=== PATIENT | male | born 1940 | race Hispanic/Latino ===

== ENCOUNTER 2023-01-21 12:41 | Day surgery (SDC) | payer MEDICARE, OTHER, SELFPAY ==
[2023-01-12 12:29] VITALS: BMI 27.8
[2023-01-21] VITALS (12 sets, daily range): BP systolic 102–154; BP diastolic 58–81; PULSE 60–69; RESP 8–18; TEMP 35.9–36.7; O2SAT 94–100; BMI 27.4
--- NOTE | 2023-01-21 06:00 | DI.RAD.S_ITS ---
PROCEDURE: XR KNEE LT 1TO2V INDICATIONS: prosthesis placement TECHNIQUE: 2 view(s) of the knee acquired. COMPARISON: None. FINDINGS: Bones: Patient is status post knee joint arthroplasty. Hardware components are in expected positions. Visualized bony structures are intact. Soft tissues: Overlying postoperative changes are noted. IMPRESSION: Postop changes from left total knee arthroplasty with anatomic left knee alignment. Dictated by: Anup Gabriel M.D. on 01/22/2023 at 10:37 Approved by: Anup Gabriel M.D. on 01/22/2023 at 10:37
[2023-01-21 13:39] LABS: COVID19 -Nasal RAPID Negative (Negative)
[2023-01-21] MEDS: PREGABALIN 75 MG CAPSULE PO (14:12)
[2023-01-21] MEDS: CELECOXIB 200 MG CAPSULE PO (14:12)
[2023-01-21] MEDS: ACETAMINOPHEN 325 MG TABLET 975 MG PO (14:12)
--- NOTE | 2023-01-21 14:39 | PM.PREOP ---
Pre-operative Note COVID-19 COVID-19 status: Negative Result date/Date tested (Pos, Neg/Pending): 01/21/23 Interval Note History & Physical reviewed/Exam performed by Physician: Yes Changes to H&P: No
[2023-01-21] MEDS: CEFAZOLIN 2 GM/100 ML PREMIX 100 ML IV ×2 (15:20→22:49)
[2023-01-21] MEDS: TRANEXAMIC ACID 1,000 MG VIAL 1000 MG INJ ×2 (15:25→16:32)
[2023-01-21] MEDS: MORPHINE 4 MG/ML INJ INJ (15:30)
[2023-01-21] MEDS: BUPIVACAINE LIPOSOME 266 MG/20 ML VIAL INJ (15:30)
[2023-01-21] MEDS: BUPIVACAINE 0.25% (PF) 60 ML, EPINEPHrine 0.3 MG INJ (15:30)
--- NOTE | 2023-01-21 15:31 | SUR.OPER ---
Supine on padded OR bed. Pillow under head, arms secured on padded armboards <90 degree abduction. Safety belt across torso. Non-operative leg secured with tape over blanket over lower leg. Operative leg secured in [employer] positioner. Foam padded brace at thigh of operative leg.
--- NOTE | 2023-01-21 16:35 | PM.OP.1 ---
Operative Date/Time/Diagnoses Date of procedure: 01/21/23 Time of procedure: 16:35 Pre-op diagnosis: Left knee osteoarthritis Post-op diagnosis: same Procedure & Clinicians Procedure: Left total knee replacement Same procedure as scheduled: Yes Indications: The patient has had progressively worsening left knee pain with radiographic changes consistent with arthritis. Non-operative management has failed and the patient has requested total knee replacement. The risks, benefits and alternatives to surgery were discussed with the patient prior to proceeding. Risks discussed included, but were not limited to, failure to relieve pain, stiffness, infection, nerve damage, deep venous thrombosis, pulmonary embolism, stroke, coma, heart attack, permanent paralysis and , as well as the potential need for eventual revision of the prosthetic. Surgeon: Agapito Parada Procurement Buyer: Margareth Turner Click Yes if Unassisted: No Anesthesia Type: General, Spinal and Local Operative Notes Findings: Severe tricompartmental osteoarthritis, worst in the medial compartment. Closure Type: primary Specimen(s): none sent Prosthetic devices, grafts, tissues, transplants, or devices: Implants used in this procedure were manufactured by the [employer] and [employer] and included the BCS II Journey total knee replacement with a size 5 left cobalt chromium femoral component, a size 5 left non porous tibial base plate, a 10 mm cross-linked tibial insert and a 32 mm oval Gisela II patella. Applied: implant(s) Estimated Blood Loss (mL): 25 Blood products transfused: none Tourniquet time (min): 47 Procedure in detail: The patient was seen in the pre-operative area, where the left knee was identified as the operative site and this was marked with my initials. The patient received pre-operative antibiotics, and was taken to the operating room and placed on the operative table in the supine position. After satisfactory anesthesia, a manual training teacher out was performed. The left leg was encircled with a tourniquet about the proximal thigh, and the leg was prepared from the toes to the tourniquet with ChloroPrep in the usual fashion and draped through sterile drapes. The leg was elevated and exsanguinated with Eschmark bandage and the tourniquet inflated to 250 mmHg pressure. The knee was approached through an approximately 18 cm incision centered over the patella and carried into the knee through a medial parapatellar arthrotomy. The anterior osteophytes and soft tissues were removed. The rotational landmarks of [place]'s line and the transepicondylar axis were marked on the femur with electrocautery, and intramedullary guide holes for the femur and tibia were created. The distal femoral cut was made in 6 degrees of valgus using the intramedullary guide at the primary cut setting. The proximal tibial cut was then made using the intramedullary guide, taking 9 mm of bone off the less involved side. The extension gap was checked and the rotation of the femoral component confirmed with the gap balancing blocks. The anterior, posterior and chamfer cuts were then made. The posterior osteophytes and soft tissues were then removed. The posterior capsule was injected with part of a mixture of 60 ml 0.25% Marcaine mixed with 20 ml Exparel and 4 mg of morphine for post-operative pain control. The remainder of this mixture was injected into the capsule and subcutaneous tissues during cement curing. The tibia was prepared with the rotation set by an extra medullary guide. Trial tibial and femoral components were then placed and the intercondylar notch cut through the femoral trial. Range of motion was 0-140 degrees, with good stability throughout the range. The patella was then cut to accommodate the patellar prosthetic. There was no need for a lateral release. The trials were then removed, and the femoral hole plugged with a bone plug. The bone was prepared with pulsatile lavage, and dried with a sponge. Cement was applied and the final prosthetics placed. Excess cement was removed during and after cement curing. After confirming there was no extruded cement posteriorly, the final tibial insert was placed. The knee was copiously irrigated and the tourniquet deflated. Hemostasis was obtained. The capsule was closed with interrupted # 2 polyester sutures. The subcutaneous layer was closed with 3-0 Vicryl, and the skin with a running 3-0 V-Lock suture and Dermabond. An Aquacel Ag dressing was applied and the patient was taken to recovery having tolerated the procedure well. The services of a skilled video production assistant were required during this procedure to provide positioning, exposure and retraction to protect vital structures. Without the services of Ms. Turner, the case could not have proceeded in a safe, expedient fashion. Complications: none Post-operative Condition: stable Disposition: PACU Plan for aftercare: The patient will be maintained on a standard total knee replacement protocol with weight bearing as tolerated. The patient will receive aspirin and sequential compression devices for DVT prophylaxis. The patient will be discharged home when safe for the home environment.
[2023-01-21] MEDS: ONDANSETRON 4 MG/2 ML INJ IV (17:39)
[2023-01-21] MEDS: ACETAMINOPHEN 325 MG TABLET 650 MG PO ×2 (17:40→22:53)
[2023-01-21] MEDS: IBUPROFEN 600 MG TABLET PO ×2 (17:40→22:53)
[2023-01-21] MEDS: LACTATED RINGERS 1,000 ML 100 ML IV (17:46)
[2023-01-21] MEDS: ATORVASTATIN 20 MG TABLET 40 MG PO (21:06)
[2023-01-21] MEDS: DOCUSATE 100 MG CAPSULE PO (21:06)
[2023-01-21] MEDS: ASPIRIN EC 81 MG TABLET PO (21:06)
[2023-01-22 00:25] VITALS: BP 122/65; PULSE 67; RESP 16; TEMP 36.3; O2SAT 96
--- NOTE | 2023-01-22 03:27 | PC.NURSE ---
Tried to void x2 but was unable to urinate. I&O cath. done without any difficulty noted 550 of dark yellow urine. Will cont. POC & monitor.
[2023-01-22 04:36] VITALS: BP 129/68; PULSE 64; RESP 17; TEMP 36.6; O2SAT 98
[2023-01-22] MEDS: LACTATED RINGERS 1,000 ML 100 ML IV (04:42)
[2023-01-22 05:45] LABS: Hematocrit 37.7 % (41-53); Hemoglobin 12.7 g/dL (13.5-17.5)
[2023-01-22] MEDS: CEFAZOLIN 2 GM/100 ML PREMIX 100 ML IV (06:40)
[2023-01-22 07:49] VITALS: BP 138/66; PULSE 61; RESP 18; TEMP 36.5; O2SAT 97
--- NOTE | 2023-01-22 07:59 | PM.DS.1 ---
History of Present Illness History of Present Illness Date Patient Seen: 01/22/23 Time Patient Seen: 07:59 Chief complaint: Left TKA *OPB* 01/07 Narrative: Patient is complaining of mild left knee pain. His main concern is that he has hiccups. Overall he is feeling well like to be discharged home today. Discharge Providers Provider Discharge Date: 01/22/23 Primary care physician: Margo Hunt MD Consults: 01/21/23 17:22 Consult to Discharge Planning Routine Comment: Consult to Physical Therapy Evaluate & Treat Comment: Physician Instructions: postop TKA protocol Discharge provider: Margareth Turner PA-C Summary Hospital Course Discharge Diagnosis: Left knee osteoarthritis Hospital Course: Operative Date/Time/Diagnoses Date of procedure: 01/21/23 Time of procedure: 16:35 Procedure & Clinicians Procedure: Left total knee replacement Same procedure as scheduled: Yes Indications: The patient has had progressively worsening left knee pain with radiographic changes consistent with arthritis. Non-operative management has failed and the patient has requested total knee replacement. The risks, benefits and alternatives to surgery were discussed with the patient prior to proceeding. Risks discussed included, but were not limited to, failure to relieve pain, stiffness, infection, nerve damage, deep venous thrombosis, pulmonary embolism, stroke, coma, heart attack, permanent paralysis and , as well as the potential need for eventual revision of the prosthetic. Surgeon: Agapito Parada Sales Negotiator: Margareth Turner Click Yes if Unassisted: No Anesthesia Type: General, Spinal and Local Operative Notes Findings: Severe tricompartmental osteoarthritis, worst in the medial compartment. Closure Type: primary Specimen(s): none sent Prosthetic devices, grafts, tissues, transplants, or devices: Implants used in this procedure were manufactured by the [employer] and [employer] and included the BCS II Journey total knee replacement with a size 5 left cobalt chromium femoral component, a size 5 left non porous tibial base plate, a 10 mm cross-linked tibial insert and a 32 mm oval Gisela II patella. Applied: implant(s) Estimated Blood Loss (mL): 25 Blood products transfused: none Tourniquet time (min): 47 Status at Discharge Cognitive/behavioral status at discharge: at baseline, oriented Functional status at discharge: uses cane/walker Overall status at discharge: patient is progressing back to baseline Exam Vital Signs (past 8 hours): - 01/22/23 00:25 01/22/23 04:36 01/22/23 07:49 Temperature 97.4 F L 97.9 F 97.7 F Pulse Rate 67 64 61 Respiratory Rate 16 17 18 Blood Pressure 122/65 129/68 138/66 Pulse Oximetry 96 98 97 Oxygen Flow Rate 0 0 0 Oxygen Delivery Method Room Air Oxygen Flow Rate 0 Narrative Exam Narrative: Pleasant 82-year-old male, resting comfortably in bed, no acute distress. He is actively hiccuping. Left knee dressing is clean, dry, intact. No surrounding erythema, induration, or jerel pus. Bilateral lower extremity: Motor functions are grossly intact, sensation is grossly intact to light touch, calves are soft and nontender to palpation. Objective Labs 01/22/23 04:49 Labs: Laboratory Results - last 24 hr 01/21/23 01/22/23 13:07 04:49 Hgb 12.7 L Hct 37.7 L SARS-CoV-2 (PCR) Negative [facility] Medical History CAD (coronary artery disease) Gout HLD (hyperlipidemia) Raynaud's syndrome RBBB (right bundle branch block with left anterior fascicular block) Surgical History History of left cataract surgery Hx of arthroscopy of right knee Hx of heart artery stent (~2003) S/P placement of cardiac pacemaker Social History household members: children Smoking Status: Never smoker alcohol intake: current Discharge Assessment & Plan Assessment and Plan Assessment: -stable status post left total knee arthroplasty Plan of Treatment: -mobilize with PT. Weightbearing as tolerated with front wheel walker cane -continue with multimodal pain management -add baclofen 5-10 mg as needed for hiccups -aspirin 81 mg b.i.d. times 6 weeks for DVT prophylaxis -DC home today once cleared by PT Discharge Plan Discharge Plan Patient Disposition: Home Discharge orders & Medications Discharge Orders: Discharge (Order); Ordered 01/22/23 Ordered By: Margareth Turner Prescriptions: New baclofen 10 mg Tablet 10 mg PO TID PRN (Reason: hiccups/muscle spasms) Qty: 30 0RF docusate sodium 100 mg Capsule 100 mg PO BID PRN (Reason: constipation) Qty: 20 0RF oxycodone 5 mg Tablet 5 mg PO Q3H PRN (Reason: Pain, Moderate (4-6)) Qty: 40 0RF acetaminophen 325 mg Tablet 650 mg PO Q6H MDD Max 3000 mg per day PRN (Reason: fever or pain) Qty: 90 0RF aspirin 81 mg Tablet,Delayed Release (Dr/Ec) 81 mg PO BID 42 Days Qty: 84 0RF Rx Instructions: Prevent blood clots ibuprofen 600 mg Tablet 600 mg PO Q6H MDD Max 2400 mg per day PRN (Reason: Pain/inflammation) Qty: 90 0RF Continued simvastatin 80 mg Tablet 80 mg PO BEDTIME Discontinued aspirin [Aspir-81] 81 mg Tablet,Delayed Release (Dr/Ec) 81 mg PO DAILY Follow up/Referrals: Margo Hunt MD [Primary Care Provider] - Agapito Parada MD [Physician] - As previously scheduled (10-14 days for postoperative visit) Diet/Activity/Treatments Diet: Diet as Tolerated Other treatments: Dressing/Wound care: -Remove the Kiet wrap 48 hours after surgery. -Keep Aquacell dressing in place until postoperative follow-up office visit. -Okay to shower. Keep wound out of direct water stream. No soaking or submerging until all the scabs fall off (approximately 4-6 weeks). -No lotions, ointments, or scar creams directly to the incision until the wound is healed (4-6 weeks). No soaking or submerging until all the scabs are gone (usually 4-6 weeks). -Bruising is relatively normal and can show up 1-10 days after surgery, and can travel down to your foot or ankle. This is expected after surgery, but can be painful. -Please call the office if dressing becomes wet, soiled, or saturated. Activities: -Walk frequently: approximately 5-10 minutes every hour. -Weight-bearing as tolerated. Use front wheeled walker, and progress to cane when safe. -Continue with home exercises as directed by your physical therapist. -Elevate ?toes above the nose if you have significant swelling in your lower leg. (A wedge pillow is easiest.) -Ice your incision as needed for pain/inflammation/swelling. Protect your skin with a folded pillowcase. -Incentive Spirometer (breathing device from hospital): 5-10xs every hour while awake for the first 1-2 weeks. Follow-up: -Follow-up with your surgeon or PA in the office in 10-14 days after surgery. -Follow-up with your surgeon 6 weeks postoperatively. Call the office if you have chest pain, shortness of breath, significant swelling that will not resolve with elevating, fever over 101?, significantly worsening pain, or are concerned you might need to go to the Emergency Room. [facility]: [phone] Skin/Wound/Dressing Care Report to your healthcare provider any signs of infection, such as:: chills, fever, night sweats, unusual drainage and unusual redness Visit Report/Discharge Packet Instructions: DI for Knee Replacement Stand Alone Forms: Patient Portal/API, Surgery Discharge Discharge Data Primary Care Provider: Margo Hunt Attending Provider: Agapito Parada Quality VTE Deep Vein Thrombosis/Pulmonary Embolism Present on Admission: No
[2023-01-22] MEDS: DOCUSATE 100 MG CAPSULE PO (09:16)
[2023-01-22] MEDS: ASPIRIN EC 81 MG TABLET PO (09:16)
--- NOTE | 2023-01-22 11:19 | PC.NURSE ---
1119 Called and left for Margaerth Turner PA-C that patient had to be straight cathed last night for 550ml and has not voided appropriately yet. Patient was bladder scanned with 275mL of urine retained in bladder. Awaiting call back.
[2023-01-22] MEDS: ACETAMINOPHEN 325 MG TABLET 650 MG PO (11:39)
[2023-01-22] MEDS: IBUPROFEN 600 MG TABLET PO (11:40)
== END 2023-01-22 03:05 | disposition home or self-care (01) ==
LOC: OR 12:43 → AC 16:57
PROVIDERS: PCP Family Medicine; Referring Provider Orthopaedic Surgery; Visit Provider Orthopaedic Surgery
PROC: 0SRD0JZ Replacement of Left Knee Joint with Synthetic Substitute, Open Approach (ICD-10-PCS; CPT 27447; principal; 2023-01-21 14:15)
DX: M17.12 Unilateral primary osteoarthritis, left knee (principal); Z20.822 Contact with and (suspected) exposure to COVID-19
CPT/HCPCS: 27447; 36415; 73560; 82962; 85014; 85018; 87635; 97161; C1776; C9803; C9290; J0171; J0690; J2250; J2270; J2274; J2405; J2704; J3010

== ENCOUNTER 2023-01-27 22:39 | Emergency (ER) | payer MEDICARE, OTHER, SELFPAY ==
[2023-01-21 17:28] VITALS: BMI 27.4
--- NOTE | 2023-01-27 23:14 | ED_ITS ---
HPI - General Adult General Chief complaint: Abdominal Pain Stated complaint: constipation s/p surgery Time Seen by Provider: 01/27/23 23:12 History of Present Illness HPI narrative: 82-year-old gentleman with a history of hyperlipidemia and osteoarthritis who underwent left knee replacement on January 21. The knee surgery recovery is going well. He states use oxycodone only the 1st day. He is taken 2 tablets of a stool softener that was prescribed. Notes that he has not had a bowel movement in the last 5 days and is becoming more and more uncomfortable. He is having some loose stool leakage. No fevers, he is passing gas. He is not had any prior difficulties with severe constipation or bowel obstruction and no prior abdominal surgeries. His son brought him over some prunes earlier today he is had couple of those and is willing to continue eating these as well. He is describing no fevers, cough, chills. He has not started physical therapy after his knee but is feeling that he is well enough to try. Related Data Home Medications Medication Instructions Recorded Confirmed simvastatin 80 mg tablet 80 mg PO BEDTIME 01/01/23 01/21/23 Previous Rx's Medication Instructions Recorded acetaminophen 325 mg tablet 650 mg PO Q6H PRN fever or pain 01/22/23 #90 tabs aspirin 81 mg tablet,delayed 81 mg PO BID 6 weeks #84 tabs 01/22/23 release baclofen 10 mg tablet 10 mg PO TID PRN hiccups/muscle 01/22/23 spasms #30 tabs docusate sodium 100 mg capsule 100 mg PO BID PRN constipation #20 01/22/23 caps ibuprofen 600 mg tablet 600 mg PO Q6H PRN 01/22/23 Pain/inflammation #90 tabs oxycodone 5 mg tablet 5 mg PO Q3H PRN Pain, Moderate 01/22/23 (4-6) #40 tabs Allergies Allergy/AdvReac Type Severity Reaction Status Date / Time No Known Drug Allergies Allergy Verified 01/21/23 13:41 Review of Systems Review of Systems Narrative: Pertinent positive and negative findings as per HPI Patient History Medical History CAD (coronary artery disease) Gout HLD (hyperlipidemia) Raynaud's syndrome RBBB (right bundle branch block with left anterior fascicular block) Surgical History History of left cataract surgery Hx of arthroscopy of right knee Hx of heart artery stent (~2003) S/P placement of cardiac pacemaker Social History household members: children Smoking Status: Never smoker alcohol intake: current Smoking Status: Never smoker alcohol intake frequency: holidays/special occasions only Substance Use Type: does not use Exam Initial Vital Signs Initial Vital Signs: Vital Signs Pulse Rate 72 01/27/23 23:27 Respiratory Rate 20 01/27/23 23:27 Blood Pressure 148/79 H 01/27/23 23:27 Pulse Oximetry 100 01/27/23 23:27 Oxygen Delivery Method Room Air 01/27/23 23:27 General: Healthy appearing, in mild distress. Able to give a complete and coherent history. Well-nourished well-developed HEENT: Moist mucous membranes, normal sclera with reactive pupils, Respiratory: Lungs are clear to auscultation, no wheezing no rales no rhonchi. Full and symmetrical air movement Cardiac: Regular rate and rhythm no murmurs no bruits Abdomen: Soft, mild diffuse tenderness without rebound or guarding, good bowel tones, no flank pain Skin: Warm and dry, no rashes Neurologic: Grossly neurologically intact with no obvious asymmetries or abnormalities Extremities: Large postoperative hematoma along the entire left lateral thigh. Left knee replacement surgical site is at appropriate levels of healing with no signs of infection or other complication Rectal exam: No significant obstructing stool in the vault Psych: Cooperative, appropriate insight and affect Course Vital Signs Vital signs: Vital Signs - 8 hr 01/27/23 23:27 01/27/23 23:29 Temperature 98.7 F Pulse Rate 72 Respiratory Rate 20 Blood Pressure [Right Arm] 148/79 H Pulse Oximetry 100 Oxygen Delivery Method Room Air Medical Decision Making [facility] Narrative Medical decision making narrative: CC: Constipation 5 days postop knee replacement Complicating co-morbidities: Age immobility secondary to surgery Data collected from: patient, son Medical records reviewed: Recent hospital admission notes reviewed Differential considered: Constipation, obstipation, bowel obstruction Exam documented above, pertinent findings include: He is not obstipated, abdomen is soft with good bowel tones Lab Test are not indicated today Discussion: 82-year-old gentleman with increasing abdominal pain 5 days without a bowel movement postop. He is at a point in his postop recovery that he is increasing his physical activity, able to increase eating and drinking, he has not used oxycodone beyond 1st day postop. Encouraged him to restart 2 capsules of docusate as prescribed. I have given him 40 mg of lactulose to use this evening and encouraged him to continue to use prunes at least 2 to 3 times a day until his bowels are returned to normal. There is no evidence of severe pathology or indication for further workup or hospitalization at this time. Findings reviewed with patient and his son questions are answered and they discharged home Discharge Plan Departure Patient Disposition: Home Clinical Impression: Constipation Qualifiers: Constipation type: drug induced constipation Qualified Code(s): K59.03 - Drug induced constipation Instructions: DI for Constipation Activity Restrictions/Additional Instructions: Thank you for coming in today I believe that this is absolutely constipation that is related to your surgery, inactivity and the small amount of narcotics that you used. There is no evidence of bowel perforation, bowel obstruction or a significant amount of very hard stool that is blocking your rectum. I would encourage you to increase activity as your able to, make sure that you are drinking plenty of water, go back to taking 2 of the docusate capsules daily as well as eating 2-4 prunes multiple times during the day. Please continue this regimen until you feel that your bowels are back to normal. From the emergency department I have given you to small containers of lactulose. This is a medicine that will pull water entire colon and help encourage a bowel movement. Please drink both containers this evening. If you find that you are getting worse or develop any new symptoms, please feel free to return to the emergency department for further evaluation. Prescriptions: No Action simvastatin 80 mg Tablet 80 mg PO BEDTIME acetaminophen 325 mg Tablet 650 mg PO Q6H MDD Max 3000 mg per day PRN (Reason: fever or pain) Qty: 90 0RF aspirin 81 mg Tablet,Delayed Release (Dr/Ec) 81 mg PO BID 42 Days Qty: 84 0RF Rx Instructions: Prevent blood clots baclofen 10 mg Tablet 10 mg PO TID PRN (Reason: hiccups/muscle spasms) Qty: 30 0RF docusate sodium 100 mg Capsule 100 mg PO BID PRN (Reason: constipation) Qty: 20 0RF ibuprofen 600 mg Tablet 600 mg PO Q6H MDD Max 2400 mg per day PRN (Reason: Pain/inflammation) Qty: 90 0RF oxycodone 5 mg Tablet 5 mg PO Q3H PRN (Reason: Pain, Moderate (4-6)) Qty: 40 0RF Referrals: Margo Hunt MD [Primary Care Provider] - Stand Alone Forms: Patient Portal/API
[2023-01-27 23:27] VITALS: BP 148/79; PULSE 72; RESP 20; O2SAT 100
[2023-01-27 23:29] VITALS: TEMP 37.1
[2023-01-28] VITALS: BP 154/83; PULSE 96; RESP 18; O2SAT 100
[2023-01-28 00:30] VITALS: BP 122/56; PULSE 82; RESP 18; O2SAT 98
[2023-01-28] MEDS: LACTULOSE 20 GM/30 ML SOLUTION 40 GM PO (00:38)
== END 2023-01-28 00:43 | disposition home or self-care (01) ==
PROVIDERS: Emergency Provider Emergency Medicine; PCP Family Medicine
DX: K59.03 Drug induced constipation (principal)
CPT/HCPCS: 99283

== ENCOUNTER 2023-10-01 12:32 | Emergency (ER) | payer MEDICARE, OTHER, SELFPAY ==
[2023-01-21 17:28] VITALS: BMI 27.4
[2023-10-01 12:37] VITALS: BP 169/83; PULSE 70; RESP 18; TEMP 36.6; O2SAT 99; BMI 26.6
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
[2023-10-01 13:21] VITALS: BP 137/63; PULSE 60; RESP 12; O2SAT 99
== END 2023-10-01 13:23 | disposition home or self-care (01) ==
PROVIDERS: Emergency Provider Physician Assistant Medical; PCP Family Medicine
DX: G89.29 Other chronic pain (principal); M25.511 Pain in right shoulder
CPT/HCPCS: 73030; 99283